=== PATIENT | male | born 1975 | race Caucasian/White ===

== ENCOUNTER 2023-07-02 12:59 | Emergency (ER) | payer OTHER, SELFPAY ==
[2023-07-02 13:01] VITALS: BP 109/69
[2023-07-02] MEDS: NSS 1000 IV (13:35)
--- NOTE | 2023-07-02 13:36 | ED.GENMED ---
History of Present Illness
General
Chief Complaint: Abdominal Pain
Source: patient
Exam Limitations: none
Time Seen by Provider: 07/02/23 13:22
Nursing documentation reviewed up to this point in time: agreed with
Travel History
Have you had any contact with someone who has COVID-19?: No
Do you have any symptoms of coronavirus? Fever > 100 degrees, chills, cough, shortness of breath, sore throat, loss of taste or smell, muscle aches, or headache?: No
History of Present Illness
History of Present Illness:
48-year-old male with no significant past medical history, just returned from [facility] 8 days ago after being there for 2 months uneventful trip other than 1 episode of diarrhea for 1 day.
Patient presents stating since 2 AM he has pain across his lower abdomen, it is a gnawing pain that crescendos up intermittently. Anytime he tries to eat or drink anything he feels bloated and the abdominal discomfort worsens.
3 days ago he developed general body aches, headache, chills and fever, metallic taste to his mouth.
[place] better yesterday but his stomach started hurting.
No mild headache behind his eyes, mild pain across lower abdomen
He has been taking Tylenol and Aleve, with no relief.
Past History
Past History
ED Past Medical History: None
ED Past Surgical History: None
Social History
Tobacco: Non-smoker
Personal: Single
Living: with family
Employment: Employed
Review of Systems
Review of Systems
Allergies reviewed?: Yes
All Other Systems: ROS reviewed and negative except as documented in HPI and ROS
Constitutional: Denies fever or fatigue
ABD/GI: Reports abdominal pain, nausea and anorexia; Denies vomiting, diarrhea, bloody stools or black stools
: Denies dysuria, flank pain, difficulty voiding or urgency
Musculoskeletal: Reports no symptoms
Skin: Reports no symptoms
Neurological: Reports no symptoms
Phy Exam
Physical Exam
Physical Exam:
GENERAL: No acute distress. A&Ox3.
CONSTITUTIONAL: Afebrile.
EYES: Clear, conjunctivae normal
ENMT: moist mucus membranes, Pharynx nl
RESPIRATORY: Regular respirations, nonlabored, lungs clear.
CARDIOVASCULAR: Regular rate and rhythm, no murmurs, no rubs.
GI: Soft, mild to moderate tenderness across lower abdomen, nondistended, normal BS
MUSCULOSKELETAL: Moves with ease. Well perfused.
SKIN: Warm, dry, pink
PSYCH: Normal mood and affect. Well kept, interactive and appropriate
NEUROLOGIC: Awake, alert and oriented. No focal neurological deficits
Course
Orders/Labs/Results
Orders:
Orders
07/02/23 13:24
0.9% Sodium Chloride 1000 ml [Nss] 1,000 ml IV BOLUS
07/02/23 13:34
CT Abd/pel W Iv And Oral Contr Urgent
Comment:
Reason For Exam: pain across lower abdomen
Iohexol [Omnipaque] See Protocol PO NOW STA
07/02/23 13:35
Complete Blood Count/With Diff Urgent
Comprehensive Metabolic Panel Urgent
Lipase Urgent
07/02/23 13:43
COVID-19 Antigen Urgent
Source: Nasal Swab
07/02/23 15:08
0.9% Sodium Chloride 1000 ml [Nss] 1,000 ml IV BOLUS
07/02/23 16:02
Ketorolac [Toradol] 15 mg IV NOW STA
07/02/23 17:02
Ondansetron Injectable [Zofran] 4 mg IV NOW STA
Abnormal Lab Results
07/02/23
13:35
WBC 1.6 L* 10^3/uL
(4.8-10.8)
RBC 4.54 L 10^6/uL
(4.70-6.10)
MCV 94.3 H fL
(80.0-94.0)
MCH 31.7 H pg
(27.0-31.0)
Plt Count 108 L 10^3/uL
(130-400)
Absolute Neuts (auto) 0.8 L* 10^3/uL
(1.4-6.5)
Absolute Lymphs (auto) 0.6 L 10^3/uL
(1.2-3.4)
Monocytes % 9.4 H %
(1.7-9.3)
AST 64 H U/L
(17-59)
07/02/23 13:35
07/02/23 13:35
Vital Signs
Initial and Last Documented VS:
Initial Vital Signs
Temp Pulse Resp BP Pulse Ox
97.8 F 83 16 109/69 100
07/02/23 13:01 07/02/23 13:01 07/02/23 13:01 07/02/23 13:01 07/02/23 13:01
Last Documented Vital Signs
Temp Pulse Resp BP Pulse Ox
97.8 F 65 18 110/67 100
07/02/23 13:01 07/02/23 18:22 07/02/23 18:22 07/02/23 18:22 07/02/23 18:22
Grounds Maintenance Worker consulted with Physician
Grounds Maintenance Worker consulted with physician?: Yes
Name of Physician Consulted: Vargas
MDM/Problems Addressed
Differential Diagnosis Includes:
Gastroenteritis, colitis, diverticulitis, viral illness, Covid
MDM/Problems Addressed:
48-year-old male with no significant past medical history, just returned from [facility] 8 days ago after being there for 2 months uneventful trip other than 1 episode of diarrhea for 1 day.
Patient presents stating since 2 AM he has pain across his lower abdomen, it is a gnawing pain that crescendos up intermittently. Anytime he tries to eat or drink anything he feels bloated and the abdominal discomfort worsens.
3 days ago he developed general body aches, headache, chills and fever, metallic taste to his mouth.
[place] better yesterday but his stomach started hurting.
No mild headache behind his eyes, mild pain across lower abdomen
He has been taking Tylenol and Aleve, with no relief.
Pt is totally nontoxic appearing
2:53 PM
CBC: WBC 1.6 Neutrophils 0.8 Platelets 108 No other clinically significant abnormality
Neutropenia, mild thrombocytopenia discussed with Hematology Dr. Thompson
CMP: Normal
Covid neg
Lipase normal
3:35 PM spoke with on site construction superintendent Dr. Thompson who agrees this may be a viral related neutropenia reactive due to viral infection, of course there is an element that may be an atypical infection due to his visiting exotic places, since he is
hemodynamically stable, not ill-appearing and the rest of his blood work and his abdominal CT shows nothing worrisome, he can be discharged to have his blood work rechecked in a week, to return to ER for fever, vomiting, feeling sicker in any way.
6:[address] abdomen pelvis with p.o. and IV contrast radiology report read: IMPRESSION:
There is a small amount of free fluid/ascites in the pelvis
There are bilateral renal cysts measuring up to 2.5 cm
Pt states Zofran helped his nausea 'a lot.' Rx for Zofran sent to his pharmacy
Out pt lab slip for repeat CBC, BMP in one week and I will check the results (pt lives in [place] and not returning for 3 weeks).
Discussed all results with him, all questions answered. He is comfortable going home (staying with his mom who is with him now).
Pt ambulated out with normal gait upon discharge
*Critical Care Note
Total Time (30-74mins, 75-104mins- exclusive of procedures): Not Applicable
ED Attending Note
-
Portions of this chart may have been created with voice recognition software.� Occasional wrong word or��sound alike� substitutions may have occurred due to the inherent limitations of voice recognition software.
Discharge Plan
Departure
Patient Disposition: Home (Routine Discharge)
Date of Disposition: 07/02/23
Time of Disposition: 18:07
Patient with high blood pressure during this ER visit?: No
Condition: Fair
Discharge Problem:
Abdominal pain, Leukopenia
Instructions: Abdominal Pain
Prescriptions:
New
ondansetron 4 mg tablet,disintegrating
4 mg PO Q8H PRN (Reason: nausea and vomiting) 5 Days Qty: 15 0RF
No Action
ascorbic acid (vitamin C) [Vitamin C] 1,000 mg Tablet
1,000 mg PO DAILY PRN (Reason: supplement)
acetaminophen 500 mg Tablet
500 mg PO Q6H PRN (Reason: mild pain)
acetaminophen 500 mg Tablet
1,000 mg PO DAILYPRN PRN (Reason: severe pain)
naproxen sodium [Aleve] 220 mg Tablet
220 mg PO Q8H PRN (Reason: mild pain)
calcium carbonate [Tums 500] 500 mg calcium (1,250 mg) Tablet,Chewable
500 mg PO DAILY PRN (Reason: indigestion)
cholecalciferol (vitamin D3)
1 tab PO DAILYPRN PRN (Reason: supplement)
zinc
1 tab PO DAILYPRN PRN (Reason: supplement)
Referrals:
NONE,* [Family Provider] -
Activity Restrictions/Additional Instructions:
As we discussed, I sent a prescription to your pharmacy for Zofran to use as needed for nausea.
Return here immediately for fever above 100.5 not relieved with Tylenol or Ibuprofen, vomiting more than once, worsening abdominal pain, bloody diarrhea or feeling sicker in any way.
Have your blood work rechecked on 07/08 between 8-10 a.m. and call me between 11 a.m. and 2 p.m. for results. and ask for Roseann Day.
Drink plenty of fluids.
Interventions
Interventions:
*Risk Screen - Suicide Last Done: 07/02/23 13:01
*General Assessment Last Done: 07/02/23 13:01
*Neglect/Abuse Screening Last Done: 07/02/23 13:01
ED- Fall Risk Assessment Last Done: 07/02/23 13:29
*ED COVID-19 Vaccine History Last Done: 07/02/23 18:23
*Nursing Disposition Last Done: 07/02/23 18:23
JK-Xsexwj-Luhqtlcjwk Assessment Last Done: 07/02/23 13:29
Discharge Date and Time
Discharge Date/Time: 07/02/23 18:23
Print Language: SALVADOREAN
[2023-07-02] MEDS: OMNIPAQUE 50 ML PO (13:41)
[2023-07-02 13:49] LABS: % Basophils 0.6 % (0-2); % Lymphocytes 37.5 % (20.5-51.1); % Monocytes 9.4 % (1.7-9.3); % Neutrophils 52.5 % (42.2-75.2); Absolute Lymphocytes 0.6 10^3/uL (1.2-3.4); Absolute Monocytes 0.2 10^3/uL (0.1-0.6); Hematocrit 42.8 % (39.0-52.0); Hemoglobin 14.4 g/dL (13.0-18.0); Mean Corp Hgb Conc. 33.6 g/dL (33.0-37.0); Mean Corpuscular Hgb 31.7 pg (27.0-31.0); Mean Corpuscular Volume 94.3 fL (80.0-94.0); Nucleated Red Blood Cells % 0 % (-); Platelet Count 108 10^3/uL (130-400); Red Blood Cell Count 4.54 10^6/uL (4.70-6.10)
[2023-07-02 13:54] LABS: White Blood Cell Count 1.6 10^3/uL (4.8-10.8)
[2023-07-02 13:58] LABS: ALT (SGPT) 36 U/L (0-50); AST (SGOT) 64 U/L (17-59); Alkaline Phosphatase 51 U/L (38-126); Blood Urea Nitrogen 11 mg/dl (9-20); Calcium 8.8 mg/dl (8.4-10.2); Carbon Dioxide 27 mmol/L (22-30); Chloride 104 mmol/L (98-107); Glucose 96 mg/dl (70-99); Lipase 268 U/L (23-300); Potassium 4.5 mmol/L (3.5-5.1); Sodium 135 mmol/L (135-145); Total Bilirubin 0.4 mg/dl (0.2-1.3); Total Protein 6.4 g/dl (6.3-8.2); eGFR > 60.00
[2023-07-02 14:05] LABS: COVID-19 Antigen Negative (Negative)
[2023-07-02 14:27] LABS: Absolute Neutrophils 0.8 10^3/uL (1.4-6.5)
[2023-07-02] MEDS: TORADOL 15 MG IV (16:27)
[2023-07-02 17:08] VITALS: BP 115/77
[2023-07-02] MEDS: ZOFRAN 4 MG IV (17:14)
[2023-07-02 18:22] VITALS: BP 110/67
== END 2023-07-02 18:23 | disposition home or self-care (01) ==
LOC: EMR 12:59
PROVIDERS: Registered Nurse; EMERGENCY PHYSICIAN Student in an Organized Health Care Education/Training Program
DX: R10.9 Unspecified abdominal pain (principal); R19.7 Diarrhea, unspecified; D72.819 Decreased white blood cell count, unspecified
CPT/HCPCS: 99284; 96374; 96375; 96361; 74177; 80053; 83690; 85025; 87811; Q9967

== ENCOUNTER 2023-07-03 23:11 | Inpatient (IN) | payer OTHER, SELFPAY ==
[2023-07-03 21:04] VITALS: BP 107/81
[2023-07-03 21:17] LABS: % Basophils 0.5 % (0-2); % Eosinophils 0.5 % (0-6); % Lymphocytes 41.2 % (20.5-51.1); % Monocytes 5.5 % (1.7-9.3); % Neutrophils 52.3 % (42.2-75.2); Absolute Lymphocytes 0.8 10^3/uL (1.2-3.4); Absolute Monocytes 0.1 10^3/uL (0.1-0.6); Hematocrit 42.4 % (39.0-52.0); Mean Corp Hgb Conc. 35.4 g/dL (33.0-37.0); Mean Corpuscular Hgb 32.1 pg (27.0-31.0); Mean Corpuscular Volume 90.6 fL (80.0-94.0); Mean Platelet Volume 9.4 fL (7.4-10.4); Nucleated Red Blood Cells % 0 % (-); Platelet Count 97 10^3/uL (130-400); Red Blood Cell Count 4.68 10^6/uL (4.70-6.10); Red Cell Dist. Width 12.9 % (11.5-14.5)
[2023-07-03 21:26] LABS: White Blood Cell Count 1.8 10^3/uL (4.8-10.8)
[2023-07-03 21:45] LABS: ALT (SGPT) 67 U/L (0-50); AST (SGOT) 113 U/L (17-59); Albumin 4.1 g/dl (3.5-5.0); Alkaline Phosphatase 51 U/L (38-126); Blood Urea Nitrogen 12 mg/dl (9-20); Calcium 8.9 mg/dl (8.4-10.2); Carbon Dioxide 28 mmol/L (22-30); Chloride 102 mmol/L (98-107); Glucose 97 mg/dl (70-99); Lipase 465 U/L (23-300); Potassium 4.3 mmol/L (3.5-5.1); Sodium 134 mmol/L (135-145); Total Bilirubin 0.5 mg/dl (0.2-1.3); Total Protein 6.7 g/dl (6.3-8.2); eGFR > 60.00
--- NOTE | 2023-07-03 22:14 | ED.GENMED ---
History of Present Illness
<Marlene Otero PA-C - Last Filed: 07/04/23 00:38>
General
Chief Complaint: Abdominal Pain
Source: patient
Exam Limitations: none
Time Seen by Provider: 07/03/23 21:55
Nursing documentation reviewed up to this point in time: agreed with
Travel History
Have you had any contact with someone who has COVID-19?: No
Do you have any symptoms of coronavirus? Fever > 100 degrees, chills, cough, shortness of breath, sore throat, loss of taste or smell, muscle aches, or headache?: Yes
Symptoms:: cough
History of Present Illness
History of Present Illness:
Patient is a 48-year-old male with no significant past medical history presenting for evaluation of worsening abdominal pain. He reports diffuse abdominal pain with associated with low-grade fever, body aches, fatigue, headache, retro-orbital pain.
He was seen in the emergency department yesterday where they did basic labs and got a CAT scan of the abdomen. Labs were significant for leukopenia and thrombocytopenia. Discussed with hematology at that time it was recommended discharge with
close return precautions.
Of note�patient was traveling in [facility] and returned home about 10 days ago. About 5 days following his return he developed fever, body aches, headache, chills, diarrhea. This then progressed to developing pain behind his eyes and intermittent
abdominal pain. [facility] where there is known dengue fever. He does report that he had multiple mosquito bites throughout his time there. He is concerned that he has dengue fever.
Phy Exam
<Marlene Otero PA-C - Last Filed: 07/04/23 00:38>
Physical Exam
Physical Exam:
General: In mild discomfort, nontoxic appearing
HEENT: Atraumatic, normocephalic; pupils equal round and reactive to light bilaterally, extraocular muscles intact, sclera nonicteric bilaterally, protecting airway
Neck: appears supple no meningeal signs, no cervical spine tenderness
CV: Regular rate and rhythm, heart sounds normal, no evidence of cyanosis
Resp: No evidence of respiratory distress, lungs clear bilaterally
Abd: Soft, diffusely tender throughout abdomen without rebound or guarding, non-distended
Extremities: No deformities, no evidence of cyanosis or edema; DP pulses palpable and equal bilaterally
Neuro: alert and oriented x 3; grossly intact
Psych: Normal affect, calm
Skin: Intact, no rashes or jaundice
Course
<Marlene Otero PA-C - Last Filed: 07/04/23 00:38>
Orders/Labs/Results
Orders:
Orders
07/03/23 21:08
IV Insert/Care/Rem.- Treatment PRN
07/03/23 21:12
Complete Blood Count/With Diff Urgent
Comprehensive Metabolic Panel Urgent
Lipase Urgent
Monotest Urgent
Comment: ADD ON
07/03/23 22:39
0.9% Sodium Chloride 1000 ml [Nss] 1,000 ml IV BOLUS
07/03/23 22:55
Miscellaneous Order As Directed
Miscellaneous order: Dengue- [id number]
Zika- [id number]
Typhoid- [id number]
EBV -
07/03/23 23:02
Add On- LAB Urgent
Tests Added?: monospot
07/03/23 23:36
CMV IgG Antibody [S] Urgent
CMV IgM Antibody [S] Urgent
Hepatitis A IgM Antibody Urgent
Hepatitis B Core Ab, IgM Urgent
Hepatitis B Surface Antibody Urgent
Hepatitis B Surface Antigen Urgent
Hepatitis C Antibody Urgent
Blood Parasites Urgent
DAISY Source: Blood/Venous
Specimen Description:
07/03/23 23:37
Blood Culture Q30M
DAISY Source: Blood/Venous
Specimen Description:
07/03/23 23:42
Blood Culture Q30M
DAISY Source: Blood/Venous
Specimen Description:
Abnormal Lab Results
07/03/23
21:12
WBC 1.8 L* 10^3/uL
(4.8-10.8)
RBC 4.68 L 10^6/uL
(4.70-6.10)
MCH 32.1 H pg
(27.0-31.0)
Plt Count 97 L 10^3/uL
(130-400)
Absolute Neuts (auto) 1.0 L 10^3/uL
(1.4-6.5)
Absolute Lymphs (auto) 0.8 L 10^3/uL
(1.2-3.4)
Sodium 134 L mmol/L
(135-145)
AST 113 H U/L
(17-59)
ALT 67 H U/L
(0-50)
Lipase 465 H U/L
(23-300)
07/03/23 21:12
07/03/23 21:12
Vital Signs
Initial and Last Documented VS:
Initial Vital Signs
Temp Pulse Resp BP Pulse Ox
99.9 F 95 17 107/81 98
07/03/23 21:04 07/03/23 21:04 07/03/23 21:04 07/03/23 21:04 07/03/23 21:04
Last Documented Vital Signs
Temp Pulse Resp BP Pulse Ox
98.3 F 70 17 103/66 99
07/03/23 23:40 07/03/23 23:40 07/03/23 23:40 07/03/23 23:40 07/03/23 23:40
Ashleelt;Geronimo Adame, DO - Last Filed: 07/03/23 22:25>
Orders/Labs/Results
Orders:
Orders
07/03/23 21:08
IV Insert/Care/Rem.- Treatment PRN
07/03/23 21:12
Complete Blood Count/With Diff Urgent
Comprehensive Metabolic Panel Urgent
Lipase Urgent
Monotest Urgent
Comment: ADD ON
07/03/23 22:39
0.9% Sodium Chloride 1000 ml [Nss] 1,000 ml IV BOLUS
07/03/23 22:55
Miscellaneous Order As Directed
Miscellaneous order: Dengue- [id number]
Zika- [id number]
Typhoid- [id number]
EBV -
07/03/23 23:02
Add On- LAB Urgent
Tests Added?: monospot
07/03/23 23:36
CMV IgG Antibody [S] Urgent
CMV IgM Antibody [S] Urgent
Hepatitis A IgM Antibody Urgent
Hepatitis B Core Ab, IgM Urgent
Hepatitis B Surface Antibody Urgent
Hepatitis B Surface Antigen Urgent
Hepatitis C Antibody Urgent
Blood Parasites Urgent
DAISY Source: Blood/Venous
Specimen Description:
07/03/23 23:37
Blood Culture Q30M
DAISY Source: Blood/Venous
Specimen Description:
07/03/23 23:42
Blood Culture Q30M
DAISY Source: Blood/Venous
Specimen Description:
Abnormal Lab Results
07/03/23
21:12
WBC 1.8 L* 10^3/uL
(4.8-10.8)
RBC 4.68 L 10^6/uL
(4.70-6.10)
MCH 32.1 H pg
(27.0-31.0)
Plt Count 97 L 10^3/uL
(130-400)
Absolute Neuts (auto) 1.0 L 10^3/uL
(1.4-6.5)
Absolute Lymphs (auto) 0.8 L 10^3/uL
(1.2-3.4)
Sodium 134 L mmol/L
(135-145)
AST 113 H U/L
(17-59)
ALT 67 H U/L
(0-50)
Lipase 465 H U/L
(23-300)
07/03/23 21:12
07/03/23 21:12
Vital Signs
Initial and Last Documented VS:
Initial Vital Signs
Temp Pulse Resp BP Pulse Ox
99.9 F 95 17 107/81 98
07/03/23 21:04 07/03/23 21:04 07/03/23 21:04 07/03/23 21:04 07/03/23 21:04
Last Documented Vital Signs
Temp Pulse Resp BP Pulse Ox
98.3 F 70 17 103/66 99
07/03/23 23:40 07/03/23 23:40 07/03/23 23:40 07/03/23 23:40 07/03/23 23:40
<Marlene Otero PA-C - Last Filed: 07/04/23 00:38>
MDM/Problems Addressed
Differential Diagnosis Includes:
Viral illness, parasitic infection(Zika, malaria, dengue, typhoid fever), hepatitis, mono, CMV,
MDM/Problems Addressed:
Patient is a 48-year-old male with no significant past medical history presenting to the emergency department with worsening abdominal pain and associated fever, myalgias, headache. Patient seen in ER yesterday and discharged after negative CT
scan. Patient recently returned from trip to [facility] where he spent a few days in [facility]. He does report multiple mosquito bites. He is concerned for specifically dengue fever. Return to the [place] about 10 days ago and symptoms
started approximately 5 days later. His vital signs are stable on arrival to emergency department. Physical exam as documented above. Labs today show severe leukopenia of 1.8 which is slightly increased from yesterday 1.6. Platelet count of 97
decreased from 103 yesterday. CMP significant for elevations in AST, ALT and lipase�all new from yesterday. Given recent travel, laboratory findings, and worsening abdominal pain�will contact infectious disease for recommendation.
Spoke with infectious disease, Dr. Malave-she recommends admission for observation until at least malaria smear has resulted. Followed ID direction on further testing. Will get blood culture, mono, hepatitis panel, CMV, malaria, typhoid fever, Zika,
dengue fever. ID will consult tomorrow. Discussed with hospitalist regarding admission for observation. IV fluids started.
Chronic conditions affecting care:
N/A
Acute Exacerbation and/or Progression of Chronic Illness:
N/A
<Marlene Otero PA-C - Last Filed: 07/04/23 00:38>
*Pulse Oximetry
Patient hypoxic: no
*EKG
Interpreted by ED Provider?: NA
*Inventory Specialist Interpretation
Rate: Inventory Specialist- N/A
*Critical Care Note
Total Time (30-74mins, 75-104mins- exclusive of procedures): Not Applicable
Data Reviewed
Review of Other/Old Records Reveals: Labs, Records and Radiology Studies
Source: patient and previous hospital records
<Marlene Otero PA-C - Last Filed: 07/04/23 00:38>
Patient Management
Discussion with other providers: Hospitalist and Ad Operations Specialist (Infectious disease-Dr. Malave)
ED Attending Note
<Marlene Otero PA-C - Last Filed: 07/04/23 00:38>
-
Portions of this chart may have been created with voice recognition software.� Occasional wrong word or��sound alike� substitutions may have occurred due to the inherent limitations of voice recognition software.
<Geronimo Adame DO - Last Filed: 07/03/23 22:25>
ED Attending Note
Patient seen and examined by attending physician: Yes
I performed the substantive portion of visit, reviewed & personally made and approve the management plan that is documented in note by myself or ABDIRAHMAN.: Yes
I performed a history and physical exam of patient and discussed management with resident, I reviewed resident's note and agree with documented findings and plan of care.: Yes
ED Attending Note:
I evaluated the patient at bedside. The patient returned from [facility] about 10 days ago and started having some withdrawal at time. He does have leukopenia and now with some increasing abdominal pain and increasing transaminases. Will also
check for Chikungunya, Zika, and Dengue.
Discharge Plan
Departure
Patient Disposition: Admit
Date of Disposition: 07/03/23
Time of Disposition: 23:11
Presentation/result/management discussed w/ accepting MD/DO: Hospitalist
Discharge Problem:
Abdominal pain, Leukopenia
Interventions
Interventions:
*Risk Screen - Suicide Last Done: 07/03/23 21:04
*General Assessment Last Done: 07/03/23 21:04
*Neglect/Abuse Screening Last Done: 07/03/23 21:04
ED- Fall Risk Assessment Last Done: 07/03/23 22:03
*ED COVID-19 Vaccine History Last Done: 07/03/23 21:04
DV-Dsigje-Zfrqroysqu Assessment Last Done: 07/03/23 22:03
[2023-07-03] MEDS: NSS 1000 IV (23:35)
[2023-07-03 23:40] VITALS: BP 103/66
--- NOTE | 2023-07-03 23:40 | HPS.HSE ---
Family Physician
-
Family Physician: * NONE
Chief Complaint
-
worsening abdominal pain
History of Present Illness
48M No prior significant PMHx, who recently returned from [facility], was evaluated at ER yesterday for abdominal pain, NEG CT AP and DC'd.
He returned to ER with worsening abdominal pain.
He was hiking in [facility] for 2 months.
Retuned to [facility] on second week june noted had many Mosquito bites there
1 week ago he a returned to [place] and 3 days later fever , chills , profuse sweating and myalgia and arthragra.
Medical History
Past Medical History
Past Medical History: Reports None
Past Surgical History: Reports None
Social History
Tobacco: Non-smoker
Alcohol: None
Drug: None
Family History
Family History: Not pertinent
Allergies / Home Medications
Allergies reflects when Allergies were last updated in [facility].
Home Medications with original date entered in [facility]
Allergy/Medication List:
Allergies
Allergy/AdvReac Type Severity Reaction Status Date / Time
No Known Allergies Allergy Verified 07/03/23 21:04
Home Medications
acetaminophen 500 mg tablet 1,000 mg PO DAILYPRN PRN severe pain 07/02/23
acetaminophen 500 mg tablet 500 mg PO Q6H PRN mild pain 07/02/23
ascorbic acid (vitamin C) 1,000 mg tablet (Vitamin C) 1,000 mg PO DAILY PRN supplement 07/02/23
calcium carbonate 500 mg PO DAILY PRN indigestion 07/02/23
cholecalciferol (vitamin D3) 1 tab PO DAILYPRN PRN supplement 07/02/23
naproxen sodium 220 mg tablet (Aleve) 220 mg PO Q8H PRN mild pain 07/02/23
ondansetron 4 mg disintegrating tablet 4 mg PO Q8H PRN nausea and vomiting 5 days #15 tabs 07/02/23
zinc 1 tab PO DAILYPRN PRN supplement 07/02/23
Review of Systems
-
Constitutional: Reports No Symptoms
EENT: Reports No Symptoms
Respiratory: Reports No Symptoms
Cardiac: Reports No Symptoms
Abdomen/GI: Reports Abdominal Pain (worsening )
: Reports No Symptoms
Musculoskeletal: Reports No Symptoms
Skin: Reports No Symptoms
Neurological: Reports No Symptoms
Endocrine: Reports No Symptoms
Hematologic/Lymphatic: Reports No Symptoms
Psych: Reports No Symptoms
Physical Exam
Vital Signs
Vital Signs
Temp Pulse Resp BP Pulse Ox
99.9 F 95 17 107/81 98
07/03/23 21:04 07/03/23 21:04 07/03/23 21:04 07/03/23 21:04 07/03/23 21:04
Physical Exam
General: Pain (mild disconfort ) and Other (nontoxic appearing)
HEENT: NormoCephalic and Anicteric
Respiratory: Clear
Cardiac: S1/S2 and Regular Rhythm; No Murmur
Breast: Deferred by me
GI: Soft, Normal Bowel Sounds, Tender (diffusely tender throughout abdomen ) and Other (no rebound tendrness , no guarding )
Rectal: Deferred by Provider
Genito-urinary: Deferred by me
Musculoskeletal: No Edema
Skin: Warm and Dry
Neuro: AO x 3 and Nonfocal/grossly intact
Psych: Calm
Laboratory Results
-
07/03/23 21:12
07/03/23 21:12
Laboratory Results
Total Bilirubin 0.5 mg/dl (0.2-1.3) 07/03/23 21:12
AST 113 U/L (17-59) H 07/03/23 21:12
ALT 67 U/L (0-50) H 07/03/23 21:12
Alkaline Phosphatase 51 U/L (38-126) 07/03/23 21:12
Lipase 465 U/L (23-300) H 07/03/23 21:12
Data Reviewed
-
CT Scan: Report Reviewed by me
Lab Data: Labs Reviewed by me
Old Records: Reviewed
Impression/Plan
-
Reviewed VS: T 99.9 HR 95 BP 107/80
Data
WCC 1.8 - was 1.6 on 07/02/23
Hgb 15 nl MCV
Plt 97 - was 108 on 07/02/23
Na 134
AST 113
ALT 67
Lipase 465
07/02/23 CT Abd/pel W Iv And Oral Contr
There is a small amount of free fluid/ascites in the pelvis
There are bilateral renal cysts measuring up to 2.5 cm
Last hospitalist admission:Nil
ASSESSMENT & PLAN
Presumed acute Bi-cytopenia ( low WCC, low Plt) nl Hgb
- Await Blood smear for parasite ( malaria )
- Pending labs: CMV IgG & IgM, Hep A IgM, HBs Ag, Hep Bs Ab, Hep B core IgM, Hep C Ab, Forrest screen per ID
- BCx
- ID consulted
Worsening abdominal pain with abn transaminase
- Trend LFTs and Lipase
- Await Blood smear for malaria parasite
- Clear and ADAT
DVT Px: SCD
Code: Full
IP MS
[2023-07-03 23:41] VITALS: BMI 20.2
[2023-07-03 23:49] LABS: Monotest Negative (Negative)
[2023-07-04] VITALS (7 sets, daily range): BP systolic 88–112; BP diastolic 53–72; BMI 19.7; BMI 19.6
[2023-07-04] MEDS: NSS 1000 IV ×4 (01:56→18:03)
[2023-07-04 02:59] LABS: Hepatitis B Surface Antigen Negative (Negative)
[2023-07-04 03:02] LABS: Hepatitis A IgM Antibody Negative (Negative); Hepatitis B Core Ab, IgM Negative (Negative)
[2023-07-04 03:16] LABS: Hepatitis B Surface Antibody Positive; Hepatitis C Antibody Negative (Negative)
[2023-07-04 04:59] LABS: Hematocrit 41.6 % (39.0-52.0); Mean Corp Hgb Conc. 33.7 g/dL (33.0-37.0); Mean Corpuscular Hgb 31.4 pg (27.0-31.0); Mean Corpuscular Volume 93.3 fL (80.0-94.0); Mean Platelet Volume 9.7 fL (7.4-10.4); Platelet Count 83 10^3/uL (130-400); Red Blood Cell Count 4.46 10^6/uL (4.70-6.10); Red Cell Dist. Width 12.8 % (11.5-14.5)
[2023-07-04 05:06] LABS: White Blood Cell Count 1.9 10^3/uL (4.8-10.8)
[2023-07-04 05:24] LABS: ALT (SGPT) 58 U/L (0-50); AST (SGOT) 96 U/L (17-59); Albumin 3.5 g/dl (3.5-5.0); Alkaline Phosphatase 54 U/L (38-126); Blood Urea Nitrogen 10 mg/dl (9-20); Calcium 8.5 mg/dl (8.4-10.2); Carbon Dioxide 29 mmol/L (22-30); Chloride 102 mmol/L (98-107); Estimated Creatinine Clearance 93 ml/min; Glucose 92 mg/dl (70-99); Potassium 4.1 mmol/L (3.5-5.1); Sodium 137 mmol/L (135-145); Total Bilirubin 0.4 mg/dl (0.2-1.3); Total Protein 5.9 g/dl (6.3-8.2); eGFR > 60.00
[2023-07-04 05:42] LABS: Lipase 376 U/L (23-300)
--- NOTE | 2023-07-04 08:24 | W.PN.HOSP.TC ---
Addendum entered and electronically signed by Jeremy Aguirre MD 07/04/23 16:28:
Patient seen and examined with resident. Agree with assessment and plan as documented. Patient with recent travel to [facility] presents with severe bicyopenia. reports getting bitten by mosquitos. no diarrhea. Had recent viral illness with fevers as
well. currently complains of nose bleed which resolved and extreme fatigue retroorbital pain, myalgias, abd pain, and rash excluding palms and soles. full 12 point ROS reviewed and negative except as documented. Exam: GEN ill appearing heart RRR
lungs clear abd soft mild TTP RUQ Ext no edema skin blanching rash on trunk. Plan:
# Bicytopenia- highly suspicious for dengue, order serology c/s ID, c/s hemeonc, leukopenic precautions, type and screen, check coag panel, peripheral smear. started on ceftriaxone for possible s typhi by ID, transfer to higher level of care for
closer monitoring as patient presents with warning signs. Already has some vascular leak with ascites. High risk for deterioration. repeat labs BID, start IVF
# Acute Transaminitis- likely infectious r/o other causes- labs ordered, start IVF and repeat CBC q12
# Elevated Lipase- cont to trend
Time spent coordinating review of records labs rads d/w resident, ID and nursing- 65 minutes
Original Note:
Today's Communication/Plan
-
see a/p
Assessment / Plan
Assessment / Plan
Assessment: 48-year-old with travel history to [facility] for 2 months, no past medical history, presents with abdominal pain, nausea, fever, fatigue maculopapular rash on torso, episode of nosebleeding Friday night.
#Acute leukopenia
#Acute thrombocytopenia
#Acute transaminitis
Plan
Based on symptoms, differentials include dengue fever vs typhoid fever
Monitor on telemetry IMU
Hep A IgM negative,
Blood cultures pending
ID input appreciated, start empiric ceftriaxone to cover typhoid
Check dengue PCR and serology
Abdominal CT scan unremarkable
Acetaminophen for pain
Blood parasite smear pending
Follow CBC and LFTs
IVF
Anticipated Discharge: 24 - 48 hours
Subjective/Interval History
-
Discussed with patient at bedside. Patient reports he is still experiencing generalized abdominal pain. Reports pain is a 2 out of 10. Reports he is fatigued, headache comes and goes, and he still has body aches. Denies diarrhea, Denies Bowel,
bladder dysfunction.
Objective Data
-
Labs:
Laboratory Results
07/03/23 07/04/23
21:12 04:46
WBC 1.8 L* 1.9 L*
Hgb 15.0 14.0
Hct 42.4 41.6
Plt Count 97 L 83 L
Sodium 134 L 137
Potassium 4.3 4.1
Chloride 102 102
Carbon Dioxide 28 29
BUN 12 10
Creatinine 1.1 0.9
Glucose 97 92
Calcium 8.9 8.5
Total Bilirubin 0.5 0.4
AST 113 H 96 H
ALT 67 H 58 H
Alkaline Phosphatase 51 54
Vital Signs:
Vital Signs
Temp Pulse Resp BP Pulse Ox
99.6 F 63 12 105/63 98
07/04/23 07:00 07/04/23 07:00 07/04/23 07:00 07/04/23 07:00 07/04/23 07:00
I&O
07/03/23 07/04/23 07/05/23
06:59 06:59 06:59
Intake Total 820 / 820
Balance 820 / 820
Review of Systems
-
All other systems: Reviewed and negative (Except as documented)
Constitutional: Reports Fatigue; Denies Fever or Weight Loss
EENT: Reports Eye Pain
Respiratory: Denies Cough, Trouble Breathing or Wheezing
Cardiac: Denies Chest Pain
Abdomen/GI: Reports Abdominal Pain and Nausea
Genitourinary: Reports No Symptoms
Musculoskeletal: Reports Muscle Pain
Skin: Reports No Symptoms
Neuro: Reports No Symptoms
Endocrine: Reports No Symptoms
Physical Exam
-
General: Other (Appears uncomfortable)
HEENT: Normocephalic
Respiratory: Clear to Auscultation; Negative Wheezes, Rales or Rhonchi
Cardiac: Regular Rhythm and S1/S2
GI: Soft and Tender (mildly tender on palpation); Negative Distended
Musculoskeletal: No Clubbing, No Cyanosis and No Edema
Skin: Other (pink macular nonblanchable rash on anterior and posterior torso)
Neuro: Awake, Alert, Oriented and AO x 3
Psych: Calm
Data Reviewed
-
Labs: Labs Reviewed by me and Discussed with Physician
[2023-07-04 08:35] LABS: Atypical Lymphocytes 4 %; Band Neutrophils 14 % (0-3); Lymphocytes 40 % (20-51); Monocytes 6 % (2-9); Normal RBC Morphology Yes; Platelets Checked Yes; Segmented Neutrophils 35 % (42-75); Total Cells Counted 100
[2023-07-04 08:36] LABS: Absolute Neutrophils -Man Diff 0.9 10^3/uL (1.4-6.5)
--- NOTE | 2023-07-04 09:05 | PTCARENOTE ---
Critical lab notification abs neutro (ANC) 0.9 WBC 1.9. Doctor Edinson notified 904. Patient placed on leukopenic precautions . transfer to IMU in process
[2023-07-04 09:34] LABS: INR 1.05; PT 13.5 Sec (11.4-14.6)
[2023-07-04 09:35] LABS: APTT 35.5 Sec (23.4-35.0)
--- NOTE | 2023-07-04 11:17 | CON.ID ---
Addendum entered and electronically signed by Jeremy Aguirre MD 07/04/23 16:25:
please disregard attending addendum, done in error.
Vu Aguirre MD
Addendum entered and electronically signed by Jeremy Aguirre MD 07/04/23 14:53:
Patient seen and examined with resident. Agree with assessment and plan as documented. Patient with recent travel to [place] presents with severe bicyopenia. reports getting bitten by mosquitos. no diarrhea. Had recent viral illness with fevers as
well. currently complains of nose bleed which resolved and extreme fatigue retroorbital pain, myalgias, abd pain, and rash excluding palms and soles. full 12 point ROS reviewed and negative except as documented. Exam: GEN ill appearing heart RRR
lungs clear abd soft mild TTP RUQ Ext no edema skin blanching rash on trunk. Plan:
# Bicytopenia- highly suspicious for dengue, order serology c/s ID, c/s hemeonc, leukopenic precautions, type and screen, check coag panel, peripheral smear. started on ceftriaxone for possible s typhi by ID, transfer to higher level of care for
closer monitoring for as patient presents with warning signs. pabloady has some vascular leak with ascites. High risk for deterioration. repeat labs BID minimum start IVF
# Acute Transaminitis- from infection r/o other causes labs orderd start IVF and repeat BID
# Eleavated Lipase- cont to trend
Time spent coordinating review of records labs rads d/w resident, ID and nursing- 65 minutes
Original Note:
Consultation
-
Date/Time Consultation Requested: July 03, [id number]
Date/Time Consultation Performed:
Requesting Provider: Dr. Clinton Tejeda
Performing Provider: Dr. Carmella Malave
Reason for Consultation: Return traveler with fever
Chief Complaint / Past History
Chief Complaint
Returned from [place]. Abdominal pain, body aches
History of Present Illness
48-year-old healthy male who recently spent [address] [facility]. When he landed, he had a cold/URI for few days which resolved. He spent most of his time in [place] hiking. Did go camping for 3 nights. He was not vigilant about insect
prevention. No known insect bites while in [place]. [place]. He had 1 day history of nausea vomiting and diarrhea in mid May. After [place], he traveled to the [facility] and visited [facility] for 4 days from June
June 16. [place] No physical contact with monkeys or any animals. He had diarrhea 2 to 3 to 3 days there. No abdominal pain. No fever. At the end of his trip he spent a [place]. On the last
day June 22, he had lunch outdoors and was bitten by multiple mosquitoes. He returned to the [facility] that evening June 22. On June 28, he started feeling unwell with subjective fever, chills, drenching sweats, headache, body aches, joint
pain, fatigue. COVID test was negative. He took Tylenol and felt a little better by June 30. However he developed lower abdominal pain. Had 1 episode of loose stools. Positive nausea. He presented to the ED on July 01. Patient
noted to be leukopenic and thrombocytopenic. CT of the abdomen pelvis showed mild pelvic ascites. He was discharged to home. He then started reading about his symptoms and was concerned about dengue fever and he returned to the ED last night. He
continues to have significant abdominal pain and nausea. Myalgias was severe yesterday. Nausea improved with Zofran. He feels slightly better today. He complains of headache behind his eyes. He did not notice rash. Had episode of nosebleeding
Friday night. No cough or shortness of breath. No urinary symptoms. Denies sexual activity for the past 2 years. He did not seek travel counseling prior to his trip to [facility]. He had traveled to [place] in the past including
[place], [place], [place]. He did receive yellow fever vaccine in the past and he believes also hepatitis A vaccine. History of mono in remote past.
Past History
Past Medical History: None
Allergy History:
No Known Allergies Allergy (Verified 07/03/23 21:04)
Medications Reviewed: Yes
Current Antibiotics:
none
Social History
Tobacco: Non-Smoker
Alcohol: None
Drug: None
Personal: Single
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
Family History
Family History: Not Pertinent
Review of Systems
Review of Systems
General: Change in Appetite
HEENT: Headache; Negative Stiff Neck, Sinus Problems or Pharyngitis
Cardiovascular: Negative Chest Pain, Dyspnea, Edema or Palpitations
Respiratory: Negative Dyspnea or Cough
Genital / Urological: Negative Dysuria or Flank Pain
Endocrine: Weakness
Musculoskeletal: Arthralgias and Myalgias
Neurological: Headache; Negative Dizziness
All systems: All other systems were reviewed and were negative
Vital Signs
Temp Pulse Resp BP Pulse Ox
99.6 F 63 12 105/63 98
07/04/23 07:00 07/04/23 07:00 07/04/23 07:00 07/04/23 07:00 07/04/23 07:00
Physical Exam
Physical Exam
Constitutional: No Acute Distress and Comfortable
Head: Other (no frontal or maxillary sinus tenderness)
Eyes: No Conjunctival Hemorrhage and Sclera Anicteric
Pharynx: Benign
Oral: No Thrush
Cardiovascular: Regular Rate and S1/S2
Pulmonary: Clear
Gastrointestinal: Soft, Non Tender, Non Distended, Normal Bowel Sounds and No Guarding
Genito-Urinary: Negative CVA Tenderness
Extremities: Negative Edema or Janeway Lesions
Musculoskeletal: Negative Joint Swelling or Joint Effusion
Skin: Rash (Faint pink macular nonblanchable rash on anterior and posterior torso)
Neurological: AO x 3; Negative Meningeal Signs
Lab / Diagnostic Study Results
07/04/23 04:46
07/04/23 04:46
Abs Immat Gran (auto) Not Reportable 07/04/23 04:46
Absolute Neuts (auto) Not Reportable 07/04/23 04:46
Absolute Lymphs (auto) Not Reportable 07/04/23 04:46
Absolute Monos (auto) Not Reportable 07/04/23 04:46
Absolute Basos (auto) Not Reportable 07/04/23 04:46
Total Counted 100 07/04/23 04:46
Immature Gran % Not Reportable 07/04/23 04:46
Neutrophils % Not Reportable 07/04/23 04:46
Lymphocytes % Not Reportable 07/04/23 04:46
Monocytes % Not Reportable 07/04/23 04:46
Eosinophils % Not Reportable 07/04/23 04:46
Basophils % Not Reportable 07/04/23 04:46
Abs Neuts (Manual) 0.9 10^3/uL (1.4-6.5) L* 07/04/23 04:46
Segmented Neutrophils 35 % (42-75) L 07/04/23 04:46
Band Neutrophils 14 % (0-3) H 07/04/23 04:46
Lymphocytes (Manual) 40 % (20-51) 07/04/23 04:46
PT 13.5 Sec (11.4-14.6) 07/04/23 09:07
INR 1.05 07/04/23 09:07
Microbiology Results
Micro:
07/04/23 09:07 Blood Parasites Smear - Pending
Blood/Venous
07/03/23 23:36 Blood Parasites Smear - Preliminary
Blood/Venous No blood parasites seen.
07/03/23 23:42 Blood Culture - Pending
Blood/Venous
07/03/23 23:37 Blood Culture - Pending
Blood/Venous
07/02/23 CT a/p: There is a small amount of free fluid/ascites in the pelvis. There are bilateral renal cysts measuring up to 2.5 cm
Assessment / Plan
# Return traveller [place] x 2 months, return date 06/24/23.
Mosquito bites (06/23/23)
# Acute leukopenia
# Acute thrombocytopenia
# Acute elevate LFT's
# Faint rash
# Fever (onset 06/28 at home), myalgias, arthralgias, BARRAZA (retro-orbital) , abdominal pain.
- Blood parasite smear negative.
-Hep A IgM neg.
-Immune to hep B with +HepBs Ab.
-blood cultures pending
- differential diagnosis:
Dengue fever vs typhoid fever.
Less likely chikungunya virus, zika.
Unlikely yellow fever (up to date with yellow fever vaccine).
- Start empiric ceftriaxone for typhoid.
- check dengue PCR and serology.
- Monitor closely for critical phase of dengue with vascular leak syndrome and shock.
Follow vitals, any signs of bleeding.
Follow CBC and LFT's
Continue fluid replacment.
Care Review
Plan reviewed with: Physician (Dr. Yanes)
[2023-07-04] MEDS: STERILE WATER FOR INJECTION 10 ML IV (12:09)
[2023-07-04] MEDS: ROCEPHIN 1000 MG IV (12:10)
[2023-07-04 12:14] LABS: Urine Albumin Negative (Neg - Trace); Urine Bilirubin Negative (Negative); Urine Character Clear (Clear); Urine Color Yellow; Urine Glucose Negative (Negative); Urine Ketone Negative (Negative); Urine Leukocyte Negative (Negative); Urine Nitrite Negative (Negative); Urine Occult Blood Negative (Negative); Urine Specific Gravity 1.005 (<1.030); Urine Urobilinogen Negative (Neg - 1+)
--- NOTE | 2023-07-04 13:13 | PTCARENOTE ---
report given to Cathie in IMU this time. Pt AAOx3 RA following a clear liquid diet NS running in R forearm @150ml/hr Rocephen started at 1200. Tests pending. Transport called to take pt to IMU.
[2023-07-04] MEDS: NSS IV (14:27)
--- NOTE | 2023-07-04 14:34 | PTCARENOTE ---
recieved pt from [address] [place] [address]. assessment as charted. pt has no complaints at this time. oriented to room. call smith in reach . sinus rythym on monitor.
--- NOTE | 2023-07-04 15:41 | CM ---
Patient was transferred off unit prior to initial assessment being completed.
[2023-07-04 20:23] LABS: % Eosinophils 2.3 % (0-6); % Immature Granulocytes 0.6 % (0-0.5); % Lymphocytes 54.7 % (20.5-51.1); % Monocytes 8.7 % (1.7-9.3); % Neutrophils 33.7 % (42.2-75.2); Absolute Lymphocytes 0.9 10^3/uL (1.2-3.4); Absolute Monocytes 0.2 10^3/uL (0.1-0.6); Hematocrit 39.4 % (39.0-52.0); Hemoglobin 13.8 g/dL (13.0-18.0); Mean Corpuscular Hgb 32.1 pg (27.0-31.0); Mean Corpuscular Volume 91.6 fL (80.0-94.0); Mean Platelet Volume 9.9 fL (7.4-10.4); Nucleated Red Blood Cells % 0 % (-); Platelet Count 75 10^3/uL (130-400)
[2023-07-04 20:48] LABS: Absolute Neutrophils 0.6 10^3/uL (1.4-6.5); White Blood Cell Count 1.7 10^3/uL (4.8-10.8)
[2023-07-05] VITALS (13 sets, daily range): BP systolic 92–111; BP diastolic 64–80; BMI 19.5
[2023-07-05] MEDS: NSS 1000 IV ×3 (01:23→15:55)
[2023-07-05] MEDS: NSS IV (04:05)
[2023-07-05 06:13] LABS: % Basophils 0.4 % (0-2); % Eosinophils 4.5 % (0-6); % Immature Granulocytes 0.4 % (0-0.5); % Lymphocytes 58.3 % (20.5-51.1); % Monocytes 7.6 % (1.7-9.3); % Neutrophils 28.8 % (42.2-75.2); Absolute Eosinophils 0.1 10^3/uL (0-0.7); Absolute Lymphocytes 1.3 10^3/uL (1.2-3.4); Absolute Monocytes 0.2 10^3/uL (0.1-0.6); Hematocrit 41.4 % (39.0-52.0); Hemoglobin 13.9 g/dL (13.0-18.0); Mean Corp Hgb Conc. 33.6 g/dL (33.0-37.0); Mean Corpuscular Hgb 31.4 pg (27.0-31.0); Mean Corpuscular Volume 93.5 fL (80.0-94.0); Mean Platelet Volume 10.5 fL (7.4-10.4); Nucleated Red Blood Cells % 0 % (-); Platelet Count 77 10^3/uL (130-400); Red Blood Cell Count 4.43 10^6/uL (4.70-6.10); Red Cell Dist. Width 12.8 % (11.5-14.5)
--- NOTE | 2023-07-05 06:28 | PTCARENOTE ---
Pt reports lower abd pain, like he feels like he needs to void. Voided 300mL. PVR 0mL. Pt states he has not had a BM since Friday. Pt reports he hasnt ambulated much since hospital admission. Denies N/V/D.
Tele showing sinus karla/sinus rhythm. Call smith within reach. Neutropenic precautions in place.
[2023-07-05 06:30] LABS: White Blood Cell Count 2.2 10^3/uL (4.8-10.8)
[2023-07-05 06:34] LABS: Blood Urea Nitrogen 9 mg/dl (9-20); Calcium 8.3 mg/dl (8.4-10.2); Carbon Dioxide 27 mmol/L (22-30); Chloride 107 mmol/L (98-107); Estimated Creatinine Clearance 103 ml/min; Glucose 89 mg/dl (70-99); Potassium 4.2 mmol/L (3.5-5.1); Sodium 139 mmol/L (135-145); eGFR > 60.00
--- NOTE | 2023-07-05 08:12 | W.PN.ID1 ---
Date of Service
Date of Service: July 05, 2023
Today's Communication
Continue antibiotics
Assessment / Plan
# Return traveller [place] x 2 months, return date 06/24/23.
Hx of Mosquito bites (06/23/23)
# Acute leukopenia
# Acute thrombocytopenia
# Acute elevate LFT's
# Faint rash
# Fever (onset 06/28 at home), myalgias, arthralgias, BARRAZA (retro-orbital) , abdominal pain.
- Blood parasite smear negative.
- Hep A IgM neg.
- Immune to hep B with +HepBs Ab.
- blood cultures pending
- differential diagnosis:
Dengue fever vs typhoid fever.
Less likely chikungunya virus, zika.
Unlikely yellow fever (up to date with yellow fever vaccine).
- Continue empiric ceftriaxone for typhoid.
- check dengue PCR and serology.
- Monitor closely for critical phase of dengue with vascular leak syndrome and shock.
Follow vitals, any signs of bleeding.
Follow CBC and LFT's
Continue fluid replacment.
Chief Complaint
-: Fever
Subjective / Review of Systems
Review of Systems: No Fever
Vital Signs / Physical Exam
Vital Signs
Vital Signs
Temp Pulse Resp BP Pulse Ox
97.8 F 54 11 101/68 99
07/05/23 03:00 07/05/23 06:15 07/05/23 06:15 07/05/23 06:00 07/05/23 06:15
Physical Exam
Constitutional: No Acute Distress, Comfortable and Non-toxic
Eyes: Sclera Anicteric
Cardiovascular: S1/S2; Negative S3/S4
Pulmonary: Non Labored; Negative Wheezes or Rales
Gastrointestinal: Soft and Non Tender
Neurological: Awake and Alert
Psychological: Calm
Objective Data
Lab Data
Lab Results
07/05/23 06:04
07/05/23 06:04
PT 13.5 Sec (11.4-14.6) 07/04/23 09:07
INR 1.05 07/04/23 09:07
APTT 35.5 Sec (23.4-35.0) H 07/04/23 09:07
Estimated Creat Clear 103 ml/min 07/05/23 06:04
Total Bilirubin 0.4 mg/dl (0.2-1.3) 07/04/23 04:46
AST 96 U/L (17-59) H 07/04/23 04:46
ALT 58 U/L (0-50) H 07/04/23 04:46
Alkaline Phosphatase 54 U/L (38-126) 07/04/23 04:46
Most recent labs reviewed.
Micro Results:
07/03/23 23:42 Blood Culture - Preliminary
Blood/Venous No Growth in 24 hours- Final report to follow
07/03/23 23:37 Blood Culture - Preliminary
Blood/Venous No Growth in 24 hours- Final report to follow
07/04/23 09:07 Blood Parasites Smear - Final
Blood/Venous No blood parasites seen.
07/03/23 23:36 Blood Parasites Smear - Final
Blood/Venous No blood parasites seen.
07/02/23 CT a/p: There is a small amount of free fluid/ascites in the pelvis. There are bilateral renal cysts measuring up to 2.5 cm
[2023-07-05 09:15] LABS: ALT (SGPT) 58 U/L (0-50); AST (SGOT) 79 U/L (17-59); Albumin 3.4 g/dl (3.5-5.0); Alkaline Phosphatase 53 U/L (38-126); Total Bilirubin 0.4 mg/dl (0.2-1.3); Total Protein 5.7 g/dl (6.3-8.2)
--- NOTE | 2023-07-05 10:13 | W.PN.HOSP.TC ---
Today's Communication/Plan
-
IVF
Await Serology
Monitor labs
Assessment / Plan
Assessment / Plan
Assessment: 48-year-old with travel history to [facility] for 2 months, presents with abdominal pain, nausea, fever, fatigue maculopapular rash on torso, episode of nose bleed Friday night. Patient did not have any recent diarrhea. Could have
had some diarrhea while in [facility] which resolved. He has bodyaches. No joint pain. Has some back pain. He spent time outdoors and has noticed muscular bites. No history of exposure to bats or animal bites. Patient does not remember the
dates of his vaccination or what types. He is going to find out. 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
On examination awake alert
Nontoxic-appearing
Cardiovascular system S1-S2 appreciated
Chest clear to auscultation
Skin no rashes
No joint tenderness or pain
Abdomen soft and nontender no hepatomegaly or splenomegaly noted
No icterus
SUPERVISOR OF WAY mostly nonfocal
No pedal edema
# Thrombocytopenia/leukopenia transaminitis
Reported fever at home
Recent travel to [facility] for 2 months
Returned on 06/24/2023
Patient thinks he was vaccinated for yellow fever
No joint pains which would be classic of chikungunya
He reports a rash however I cannot see any rash today on his body.
It is possible that it could be dengue-PCR pending
Zika is also prevalent in that area
Symptoms Not C/w leptospirosis
Malaria smear-negative
On ceftriaxone to cover typhoid
Follow CBC with differential and LFTs
Continue IV fluids
EKG ordered
Obtain patient's vaccination history he thinks he was vaccinated for yellow fever, hepatitis he is not sure about typhoid
# DVT prophylaxis-SCDs
# Full code
D/W RN
Anticipated Discharge: 24 - 48 hours
Subjective/Interval History
-
Date of Service: July 05, 2023
Objective Data
-
Labs:
Laboratory Results
07/05/23
06:04
WBC 2.2 L*
Hgb 13.9
Hct 41.4
Plt Count 77 L
Sodium 139
Potassium 4.2
Chloride 107
Carbon Dioxide 27
BUN 9
Creatinine 0.8
Glucose 89
Calcium 8.3 L
Total Bilirubin 0.4
AST 79 H
ALT 58 H
Alkaline Phosphatase 53
Vital Signs:
Vital Signs
Temp Pulse Resp BP Pulse Ox
98.2 F 63 13 103/65 100
07/05/23 07:35 07/05/23 08:00 07/05/23 08:00 07/05/23 08:00 07/05/23 08:00
I&O
07/04/23 07/05/23 07/06/23
06:59 06:59 06:59
Intake Total 820 / 820 3530 / 3530
Output Total 2575 / 2575
Balance 820 / 820 955 / 955
--- NOTE | 2023-07-05 10:31 | CON.ONC ---
Impression
Impression
acute febrile illness after mosquito bites in [facility], concerning for Dengue fever
leukopenia, thrombocytopenia
normal coags at admission
Plan
Plan
Clinically improving
No signs of bleeding, as can be seen in about 1/3 of Dengue cases (etiology is poorly understood, may be due to increased capillary fragility)
Will update coags, and check fibrinogen. Would consider cryoptt if low fibrinogen, though unlikely
Supportive care per primary team, ID
Patient History
History of Present Illness
Asked to see patient about bleeding risk with suspected Dengue fever versus typhoid.
This is a 48 yo M who was recently traveling in [place], where he was bitten by multiple mosquitoes. Approximately 5-6 days later, now home in [place], he developed fevers, chills, sweats, headache, retro-orbital pain, nausea, myalgias, arhtralgias
and fatigue. He was seen in the ER on 07/02/23, and found to have low WBC and platelet count. CT was noted only for mild pelvic ascites. He was sent home, but returned over concern that he could have Dengue, with significant abd pain, and was
admitted. Full infection work-up is pending. He's on empiric ceftrixone.
Labs today noted for slight improvement in WBC, up to 2.2 from 1.7 yesterday. Platelet stable at 77. Hgb 13.9. He denies bleeding from nose, mouth, gums. No GI/ bleeding. No rashes or skin lesions. He had scant blood on a tissue when he blew his
nose on 06/30.
Appetite improving, though abd pain increased currently as he ate muller and eggs for breakfast. Still with retro-orbital pain, but less.
Past-Medical/Surgical History
PMH/PSH - none
FH - NC
SH - non smoker
Patient Medication
�Medication �Instructions �Recorded �Confirmed �Last Taken �Type
acetaminophen 500 mg tablet 1,000 mg PO DAILYPRN PRN severe 07/02/23 07/02/23 Unknown History
pain
acetaminophen 500 mg tablet 500 mg PO Q6H PRN mild pain 07/02/23 07/02/23 07/01/23 History
ascorbic acid (vitamin C) 1,000 mg 1,000 mg PO DAILY PRN supplement 07/02/23 07/02/23 07/01/23 History
tablet (Vitamin C)
calcium carbonate 500 mg PO DAILY PRN indigestion 07/02/23 07/02/23 07/01/23 History
cholecalciferol (vitamin D3) 1 tab PO DAILYPRN PRN supplement 07/02/23 07/02/23 07/01/23 History
naproxen sodium 220 mg tablet 220 mg PO Q8H PRN mild pain 07/02/23 07/02/23 07/01/23 History
(Aleve)
ondansetron 4 mg disintegrating 4 mg PO Q8H PRN nausea and 07/02/23 Unknown Rx
tablet vomiting 5 days #15 tabs
zinc 1 tab PO DAILYPRN PRN supplement 07/02/23 07/02/23 07/01/23 History
Active Medications
Generic Name Dose Route Start Last Admin
Trade Name Freq PRN Reason Stop Dose Admin
Acetaminophen 650 mg 07/04/23 01:30
Acetaminophen 325 Mg Tablet PO 08/01/23 01:29
Q4HPRN PRN
mild pain/BARRAZA/temp> 100.4F
Ceftriaxone Sodium 1,000 mg 07/04/23 12:00 07/04/23 12:10
Ceftriaxone 1000 Mg / 10 Ml Vial IV 1,000 mg
Q24H SHAKIRA Administration
Sodium Chloride 1,000 mls @ 100 mls/hr 07/04/23 09:00 07/05/23 08:06
Nss IV 1,000 mls
.Q10H SHAKIRA Administration
Sodium Chloride 0 flush 07/04/23 02:00
Sodium Chloride 0.9% (Flush) Syringe IV 08/01/23 01:59
PER PROTOCOL SHAKIRA
Sterile Water 10 ml 07/04/23 12:00 07/04/23 12:09
Sterile Water For Injection 10 Ml Vial IV 08/01/23 11:59 10 ml
Q24H SHAKIRA Administration
Review of Systems
-
All Other Systems: Not reviewed unless documented
Physical Exam
-
General: Well Developed, Well Nourished and No Apparent Distress
HEENT: Moist Mucous Membranes and Other (no oral lesions/bleeding); Negative Jaundice
Cardiology: Normal Sinus Rhythm
Pulmonary: Clear
GI: Soft and Normal Bowel Sounds
Musculoskeletal: No Clubbing, No Cyanosis and No Edema
Extremities: No C/C/E
Neurology: Non Focal, No Lateralizing Symptoms and No Word Finding Difficulty
Skin: Warm, Dry, No Ecchymosis and Other (no petechiae); Negative Rash, Ulcers, Lesions or Jaundice
Hematologic / Lymphatic: No Lymphadenopathy
Psych: Calm and Intact Judgement/Insight
Labs
Lab Results
WBC 2.2 10^3/uL (4.8-10.8) L* 07/05/23 06:04
RBC 4.43 10^6/uL (4.70-6.10) L 07/05/23 06:04
Hgb 13.9 g/dL (13.0-18.0) 07/05/23 06:04
Hct 41.4 % (39.0-52.0) 07/05/23 06:04
MCV 93.5 fL (80.0-94.0) 07/05/23 06:04
MCH 31.4 pg (27.0-31.0) H 07/05/23 06:04
MCHC 33.6 g/dL (33.0-37.0) 07/05/23 06:04
RDW 12.8 % (11.5-14.5) 07/05/23 06:04
Plt Count 77 10^3/uL (130-400) L 07/05/23 06:04
MPV 10.5 fL (7.4-10.4) H 07/05/23 06:04
Abs Immat Gran (auto) 0.0 10^3/uL (0-0.05) 07/04/23 20:13
Absolute Neuts (auto) 0.6 10^3/uL (1.4-6.5) L* 07/04/23 20:13
Absolute Lymphs (auto) 0.9 10^3/uL (1.2-3.4) L 07/04/23 20:13
Absolute Monos (auto) 0.2 10^3/uL (0.1-0.6) 07/04/23 20:13
Absolute Eos (auto) 0.0 10^3/uL (0-0.7) 07/04/23 20:13
Absolute Basos (auto) 0.0 10^3/uL (0-0.2) 07/04/23 20:13
Immature Gran % 0.6 % (0-0.5) H 07/04/23 20:13
Neutrophils % 33.7 % (42.2-75.2) L 07/04/23 20:13
Lymphocytes % 54.7 % (20.5-51.1) H 07/04/23 20:13
Monocytes % 8.7 % (1.7-9.3) 07/04/23 20:13
Eosinophils % 2.3 % (0-6) 07/04/23 20:13
Basophils % 0.0 % (0-2) 07/04/23 20:13
Creatinine 0.8 mg/dL (0.7-1.3) 07/05/23 06:04
Vital Signs
Vital Signs
Temp Pulse Resp BP Pulse Ox
98.2 F 63 13 103/65 100
07/05/23 07:35 07/05/23 08:00 07/05/23 08:00 07/05/23 08:00 07/05/23 08:00
[2023-07-05] MEDS: ROCEPHIN 1000 MG IV (12:05)
[2023-07-05] MEDS: STERILE WATER FOR INJECTION 10 ML IV (12:05)
[2023-07-05 12:50] LABS: CMV IgG Antibody <0.20 U/mL (<=0.70)
[2023-07-05 13:11] LABS: CMV IgM Antibody <8.0 AU/mL (<=29.9)
[2023-07-05 13:14] LABS: Absolute Neutrophils 0.6 10^3/uL (1.4-6.5)
[2023-07-06] VITALS (13 sets, daily range): BP systolic 91–118; BP diastolic 56–77; BMI 19.3
[2023-07-06] MEDS: NSS 1000 IV (01:02)
[2023-07-06 04:54] LABS: INR 1.02; PT 13.3 Sec (11.4-14.6)
[2023-07-06 04:55] LABS: APTT 34.7 Sec (23.4-35.0); Fibrinogen 277 MG/DL (199-459)
[2023-07-06 05:28] LABS: ALT (SGPT) 51 U/L (0-50); AST (SGOT) 62 U/L (17-59); Albumin 3.1 g/dl (3.5-5.0); Alkaline Phosphatase 49 U/L (38-126); Total Bilirubin 0.4 mg/dl (0.2-1.3); Total Protein 5.5 g/dl (6.3-8.2)
--- NOTE | 2023-07-06 05:33 | PTCARENOTE ---
Pt slept well overnight, no issues to report. Pt only complaint is some minor discomfort/ abd bloating after eating. Denies any pain or nausea. HR in the 40's when sleeping SB on the monitor. IVF infusing Via right forearm int as ordered. Pt using
urinal independently when needed. Vital signs stable. Call smith in reach. Will continue to monitor.
--- NOTE | 2023-07-06 09:04 | W.PN.ID1 ---
Date of Service
Date of Service: July 06, 2023
Today's Communication
D/C ceftriaxone and observe.
Assessment / Plan
# Return traveller [place] x 2 months, return date 06/24/23.
Hx of Mosquito bites (06/23/23)
# Acute leukopenia
# Acute thrombocytopenia
# Acute elevate LFT's
# Faint rash
# Fever (onset 06/28 at home), myalgias, arthralgias, BARRAZA (retro-orbital) , abdominal pain.
- Blood parasite smear negative.
- Hep A IgM neg.
- Immune to hep B with +HepBs Ab.
- blood cultures pending
- differential diagnosis:
Dengue fever vs typhoid fever.
Less likely chikungunya virus, zika.
Unlikely yellow fever (up to date with yellow fever vaccine).
- Doubt typhoid at present. Will discontinue ceftriaxone for the present. Can restart if necessary.
- check dengue PCR and serology.
- Monitor closely for critical phase of dengue with vascular leak syndrome and shock.
Follow vitals, any signs of bleeding.
Follow CBC and LFT's
Continue fluid replacement.
Chief Complaint
-: Fever
Subjective / Review of Systems
Patient seen and examined. Reports decreased and general body aches. Mild stomach discomfort, but no fevers or chills. No diarrhea. Normal bowel movement today.
Vital Signs / Physical Exam
Vital Signs
Vital Signs
Temp Pulse Resp BP Pulse Ox
97.5 F 52 14 106/66 99
07/06/23 03:15 07/06/23 08:15 07/06/23 08:15 07/06/23 08:00 07/06/23 08:17
Physical Exam
Constitutional: No Acute Distress, Comfortable and Non-toxic
Eyes: Sclera Anicteric
Pulmonary: Non Labored; Negative Wheezes
Gastrointestinal: Non Distended
Neurological: Awake and Alert
Psychological: Calm
Objective Data
Lab Data
PT 13.3 Sec (11.4-14.6) 07/06/23 04:24
INR 1.02 07/06/23 04:24
APTT 34.7 Sec (23.4-35.0) 07/06/23 04:24
Estimated Creat Clear 103 ml/min 07/05/23 06:04
Total Bilirubin 0.4 mg/dl (0.2-1.3) 07/06/23 04:24
AST 62 U/L (17-59) H 07/06/23 04:24
ALT 51 U/L (0-50) H 07/06/23 04:24
Alkaline Phosphatase 49 U/L (38-126) 07/06/23 04:24
Most recent labs reviewed.
Micro Results:
07/03/23 23:42 Blood Culture - Preliminary
Blood/Venous No Growth in 48 hours- Final report to follow
07/03/23 23:37 Blood Culture - Preliminary
Blood/Venous No Growth in 48 hours- Final report to follow
07/04/23 09:07 Blood Parasites Smear - Final
Blood/Venous No blood parasites seen.
07/03/23 23:36 Blood Parasites Smear - Final
Blood/Venous No blood parasites seen.
07/02/23 CT a/p: There is a small amount of free fluid/ascites in the pelvis. There are bilateral renal cysts measuring up to 2.5 cm
[2023-07-06 09:17] LABS: Hematocrit 42.2 % (39.0-52.0); Hemoglobin 14.8 g/dL (13.0-18.0); Mean Corp Hgb Conc. 35.1 g/dL (33.0-37.0); Mean Corpuscular Hgb 31.8 pg (27.0-31.0); Mean Corpuscular Volume 90.8 fL (80.0-94.0); Mean Platelet Volume 9.8 fL (7.4-10.4); Nucleated Red Blood Cells % 0 % (-); Platelet Count 99 10^3/uL (130-400); Red Blood Cell Count 4.65 10^6/uL (4.70-6.10); Red Cell Dist. Width 12.7 % (11.5-14.5); White Blood Cell Count 2.8 10^3/uL (4.8-10.8)
[2023-07-06 09:24] LABS: Blood Urea Nitrogen 11 mg/dl (9-20); Calcium 8.4 mg/dl (8.4-10.2); Carbon Dioxide 26 mmol/L (22-30); Chloride 110 mmol/L (98-107); Estimated Creatinine Clearance 102 ml/min; Glucose 90 mg/dl (70-99); Magnesium 1.9 mg/dl (1.6-2.3); Sodium 138 mmol/L (135-145); eGFR > 60.00
[2023-07-06 09:41] LABS: Potassium 4.4 mmol/L (3.5-5.1)
--- NOTE | 2023-07-06 10:06 | W.PN.HOSP.TC ---
Today's Communication/Plan
-
IVF
Watch
Assessment / Plan
Assessment / Plan
Assessment: 48-year-old with travel history to [facility] for 2 months, presents with abdominal pain, nausea, fever, fatigue maculopapular rash on torso, episode of nose bleed Friday night. Patient did not have any recent diarrhea. Could have
had some diarrhea while in [place] which resolved. He has bodyaches. No joint pain. Has some back pain. He spent time outdoors and has noticed muscular bites. No history of exposure to bats or animal bites. Patient does not remember the
dates of his vaccination or what types. He is going to find out. 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
On examination awake alert
Nontoxic-appearing
Cardiovascular system S1-S2 appreciated
Chest clear to auscultation
Skin no rashes
No joint tenderness or pain
Abdomen soft and nontender no hepatomegaly or splenomegaly noted
No icterus
[employer] mostly nonfocal
No pedal edema
# Thrombocytopenia/leukopenia/ transaminitis
Reported fever at home
Recent travel to [facility] for 2 months
Returned on 06/24/2023
Patient thinks he was vaccinated for yellow fever
No joint pains which would be classic of chikungunya
He reports a rash however I cannot see any rash today on his body.
It is possible that it could be dengue-PCR pending
Zika is also prevalent in that area
Symptoms Not C/w leptospirosis
Malaria smear-negative
Ceftriaxone stopped by ID today.
Follow CBC with differential and LFTs
Labs improving
Stop IVF and watch today
EKG SR Incomplete RBBB
#Asymptomatic Bradycardia- Picks with to 70s when he ambulates
# DVT prophylaxis-SCDs
# Full code
D/W RN
Obtain patient's vaccination history he thinks he was vaccinated for yellow fever, hepatitis he is not sure about typhoid
Anticipated Discharge: 24 - 48 hours
Subjective/Interval History
-
Date of Service: July 06, 2023
Objective Data
-
Labs:
Laboratory Results
07/06/23 07/06/23
04:24 09:01
WBC 2.8 L
Hgb 14.8
Hct 42.2
Plt Count 99 L D
PT 13.3
INR 1.02
APTT 34.7
Sodium 138
Potassium 4.4
Chloride 110 H
Carbon Dioxide 26
BUN 11
Creatinine 0.8
Glucose 90
Calcium 8.4
Total Bilirubin 0.4
AST 62 H
ALT 51 H
Alkaline Phosphatase 49
Vital Signs:
Vital Signs
Temp Pulse Resp BP Pulse Ox
97.5 F 52 14 106/66 99
07/06/23 03:15 07/06/23 08:15 07/06/23 08:15 07/06/23 08:00 07/06/23 08:17
I&O
07/05/23 07/06/23 07/07/23
06:59 06:59 06:59
Intake Total 3530 / 3530 3480 / 3480
Output Total 2575 / 2575 3275 / 3275
Balance 955 / 955 205 / 205
[2023-07-06] MEDS: NSS IV (10:21)
--- NOTE | 2023-07-06 10:21 | CM ---
CM following re: discharge planning.
Reviewed pt's chart, met with pt.
Pt is a 48 year old male, admitted with primary dx of Abdominal pain.
Pt reports he lives with mother in a 2SH, 2 steps to enter. 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 pt reports he went to [facility] and pent 2 months there with friends, hiking in [place] and enjoying
[facility] [employer].
PCP: Pt stated he does not have PCP. A list of PCP offices provided.
Pharmacy: [facility]
D/C plan: home with anticipated no needs.
CM will follow with discharge plan updates as hospitalization progresses
[2023-07-06 11:28] LABS: Absolute Neutrophils -Man Diff 1.1 10^3/uL (1.4-6.5); Band Neutrophils 3 % (0-3); Segmented Neutrophils 37 % (42-75)
[2023-07-06 11:29] LABS: Atypical Lymphocytes 7 %; Eosinophils 4 % (0-6); Lymphocytes 41 % (20-51); Monocytes 8 % (2-9)
[2023-07-06 11:31] LABS: Normal RBC Morphology No; Platelets Checked YES
[2023-07-06 11:32] LABS: Ovalocytes FEW; Total Cells Counted 100
--- NOTE | 2023-07-06 14:22 | PTCARENOTE ---
Patient stating that his bloating is resolving. He had a formed bowel movement today and ate majority of his lunch. Shower order obtained as per patient request. Patient has been compliant with plan of care, on neutrapenic precautions. Labs
completed.
--- NOTE | 2023-07-06 15:13 | PTCARENOTE ---
Patient has been in Sinus bradycardia 40-50s this shift, asymptomatic. Discussed with medical team.
[2023-07-07] VITALS (8 sets, daily range): BP systolic 99–109; BP diastolic 61–81; BMI 18.8
[2023-07-07 05:56] LABS: % Basophils 0.6 % (0-2); % Eosinophils 4.4 % (0-6); % Lymphocytes 57.8 % (20.5-51.1); % Monocytes 7.4 % (1.7-9.3); % Neutrophils 29.8 % (42.2-75.2); Absolute Eosinophils 0.2 10^3/uL (0-0.7); Absolute Monocytes 0.3 10^3/uL (0.1-0.6); Hematocrit 40.4 % (39.0-52.0); Hemoglobin 13.9 g/dL (13.0-18.0); Mean Corp Hgb Conc. 34.4 g/dL (33.0-37.0); Mean Corpuscular Hgb 31.2 pg (27.0-31.0); Mean Corpuscular Volume 90.8 fL (80.0-94.0); Mean Platelet Volume 10.5 fL (7.4-10.4); Nucleated Red Blood Cells % 0 % (-); Platelet Count 130 10^3/uL (130-400); Red Blood Cell Count 4.45 10^6/uL (4.70-6.10); Red Cell Dist. Width 12.4 % (11.5-14.5); White Blood Cell Count 3.4 10^3/uL (4.8-10.8)
--- NOTE | 2023-07-07 09:28 | W.PN.ID1 ---
Date of Service
Date of Service: July 07, 2023
Today's Communication
Can dc home from ID standpoint.
Follow-up with me in one week with repeat CBC, CMP.
Assessment / Plan
# Return traveller [place] x 2 months, return date 06/24/23.
Hx of Mosquito bites (06/23/23)
# Acute leukopenia - IMPROVING
# Acute thrombocytopenia - RESOLVED
# Acute elevate LFT's -TRENDING DOWN
# Faint rash- RESOLVED
# Recent Fever (onset 06/28 at home), myalgias, arthralgias, BARRAZA (retro-orbital) , abdominal pain.
- Blood parasite smear negative.
- Hep A IgM neg.
- Immune to hep B with +HepBs Ab.
- blood cultures negative
- differential diagnosis:
Suspect Dengue fever -> sendout serology pending
Less likely typhoid fever as blood cx neg; ceftriaxone dc'd over the weekend.
Less likely chikungunya virus, zika.
Unlikely yellow fever (up to date with yellow fever vaccine).
-Pt overall improving.
Can dc home from ID standpoint.
Follow-up with me in one week with repeat CBC, CMP.
Chief Complaint
-: Other (return traveler)
Subjective / Review of Systems
Feeling better. Some abdominal gas. No diarrhea.
Vital Signs / Physical Exam
Vital Signs
Vital Signs
Temp Pulse Resp BP Pulse Ox
97.8 F 75 11 105/68 97
07/07/23 07:30 07/07/23 08:45 07/07/23 08:45 07/07/23 08:00 07/07/23 08:53
Physical Exam
Constitutional: No Acute Distress and Comfortable
Eyes: No Conjunctival Hemorrhage and Sclera Anicteric
Cardiovascular: Regular Rate and S1/S2
Pulmonary: Clear
Gastrointestinal: Soft, Non Tender and Non Distended
Extremities: Negative Edema
Skin: Negative Rash
Neurological: AO x 3
Objective Data
Lab Data
Lab Results
07/07/23 05:39
07/06/23 04:24
PT 13.3 Sec (11.4-14.6) 07/06/23 04:24
INR 1.02 07/06/23 04:24
APTT 34.7 Sec (23.4-35.0) 07/06/23 04:24
Estimated Creat Clear 102 ml/min 07/06/23 04:24
Total Bilirubin 0.4 mg/dl (0.2-1.3) 07/06/23 04:24
AST 62 U/L (17-59) H 07/06/23 04:24
ALT 51 U/L (0-50) H 07/06/23 04:24
Alkaline Phosphatase 49 U/L (38-126) 07/06/23 04:24
Most recent labs reviewed.
Micro Results:
07/03/23 23:42 Blood Culture - Preliminary
Blood/Venous No Growth in 72 hours- Final report to follow
07/03/23 23:37 Blood Culture - Preliminary
Blood/Venous No Growth in 72 hours- Final report to follow
07/04/23 09:07 Blood Parasites Smear - Final
Blood/Venous No blood parasites seen.
07/03/23 23:36 Blood Parasites Smear - Final
Blood/Venous No blood parasites seen.
07/02/23 CT a/p: There is a small amount of free fluid/ascites in the pelvis. There are bilateral renal cysts measuring up to 2.5 cm
--- NOTE | 2023-07-07 11:16 | W.PN.HOSP.TC ---
Addendum entered and electronically signed by Jeremy Aguirre MD 07/07/23 21:53:
Patient seen and examined with resident. Agree with assessment and plan as documented. Feels much stronger, no bleed. full 12 point ROS reviewed and negative except as documented. Exam: GEN NAD heart RRR lungs clear abd soft mild TTP RUQ Ext no
edema skin no rash. Plan:
# Bicytopenia- highly suspicious for dengue, test still pending, much improved DC home f/u ID as OP
# Acute Transaminitis- resolving, f/u as OP
Dispo no PCP set up with [facility]-information gievn
Time spent coordinating review of records labs rads dc planning, d/w resident, ID and nursing- 35 minutes
Original Note:
Today's Communication/Plan
-
His white blood cell, ANC has improved
Denies fever, denies fatigue
Is tolerating oral diet/fluids
Plan is to discharge today and follow-up outpatient infectious disease and PCP,
Recheck CBC, BMP outpatient in a week
Assessment / Plan
Assessment / Plan
Assessment:
# Thrombocytopenia/leukopenia
He was initially started on ceftriaxone to cover typhoid but D/C yesterday
WBC 3.4. Trending up since presentation
ANC now 1000.
dengue-PCR pending
Malaria smear-negative
Labs improving
IVF stopped yesterday, and he was watched today
# Transaminitis
LFTs improving since admission
Continue to monitor
# DVT prophylaxis-SCDs
# Full code
Anticipated Discharge: Today
Subjective/Interval History
-
Discussed with patient at bedside. Patient denies fatigue. Denies abdominal pain. Reports mild bloating. Tolerating oral and liquids
Objective Data
-
Labs:
Laboratory Results
07/07/23
05:39
WBC 3.4 L
Hgb 13.9
Hct 40.4
Plt Count 130 D
Vital Signs:
Vital Signs
Temp Pulse Resp BP Pulse Ox
97.8 F 75 11 105/68 97
07/07/23 07:30 07/07/23 08:45 07/07/23 08:45 07/07/23 08:00 07/07/23 08:53
I&O
07/06/23 07/07/23 07/08/23
06:59 06:59 06:59
Intake Total 3480 / 3480 540 / 540
Output Total 3275 / 3275 1625 / 1625 250 / 250
Balance 205 / 205 -1085 / -1085 -250 / -250
Review of Systems
-
All other systems: Reviewed and negative (except as documented)
Physical Exam
-
General: Well Developed and Well Nourished
HEENT: Normocephalic
Respiratory: Clear to Auscultation; Negative Wheezes, Rales or Rhonchi
Cardiac: Regular Rhythm and S1/S2
GI: Soft, Nontender, Nondistended and Normal Bowel Sounds
Musculoskeletal: No Clubbing, No Cyanosis and No Edema
Neuro: Awake, Alert, Oriented and AO x 3
Psych: Calm
Data Reviewed
-
Labs: Labs Reviewed by me and Discussed with Physician
--- NOTE | 2023-07-07 13:53 | W.PN.ONC2 ---
Today's Communication / Plan
-
ANC now 1000.
No objection to taking off neutropenic precautions and d/c home.
Impression
Impression
Acute febrile illness after mosquito bites in [place], concerning for Dengue fever
Thrombocytopenia without evidence of DIC, resolving, was likely infection-related
Leukopenia/neutropenia, improved, likely infection-related
Plan
Plan
Clinically improving
No signs of bleeding, as can be seen in about 1/3 of Dengue cases (etiology is poorly understood, may be due to increased capillary fragility)
Supportive care per primary team, ID
Subjective/Objective
Chief Complaint
Heme/Onc follow up of cytopenias
Subjective
Feels better. Denies current fever
Vital Signs:
Vital Signs
Temp Pulse Resp BP Pulse Ox
97.8 F 75 11 105/68 97
07/07/23 11:39 07/07/23 08:45 07/07/23 08:45 07/07/23 08:00 07/07/23 08:53
Lab Results:
Laboratory Data
WBC 3.4 10^3/uL (4.8-10.8) L 07/07/23 05:39
Hgb 13.9 g/dL (13.0-18.0) 07/07/23 05:39
Plt Count 130 10^3/uL (130-400) D 07/07/23 05:39
PT 13.3 Sec (11.4-14.6) 07/06/23 04:24
INR 1.02 07/06/23 04:24
APTT 34.7 Sec (23.4-35.0) 07/06/23 04:24
eGFR > 60.00 07/06/23 04:24
Physical Exam
HEENT: Moist Mucous Membranes; No Jaundice
Cardiology: Normal Sinus Rhythm, S1 and S2
Pulmonary: Clear; No Wheezes or Rales
GI: Soft and Normal Bowel Sounds
Extremities: No C/C/E
Neuro: Non Focal
Review of Systems
Review of Systems
Constitutional: Reports Fatigue; Denies Fever
Head: Denies Sore Throat or Hearing Loss
Respiratory: Denies Dyspnea or Cough
Cardiovascular: Denies Chest Pain or Palpitations
Gastrointestinal: Denies Nausea/Vomiting or Diarrhea
Genitourinary: Denies Hematuria
Skin: Denies Rash or Pruritis
Neurological: Denies Headache or Numbness
Psychiatric: Denies Depression or Insomnia
Hem/Lymphatic: Reports Easy Bruising
--- NOTE | 2023-07-07 14:12 | CM ---
Patient seen at bedside. Patient provided insurance number of [id number] [facility] PPO. CM will call to admissions and update. Patient for discharge tentatively today and states that he has no needs at this time. CM will continue to
follow for discharge planning needs.
Plan; home with no needs.
--- NOTE | 2023-07-07 15:21 | W.DCSUMMARY ---
Addendum entered and electronically signed by Jeremy Aguirre MD 07/07/23 21:54:
Attending Addendum:
Read reviewed and agree. See same day progress note for additional details.
Vu Aguirre MD
Original Note:
Documented by User: Zoraida Das MD, Resident 07/07/23 17:31
Discharge Summary
Discharge Data
Date of Admission: 07/03/23
Date of Discharge: 07/07/23
-
Pending Results: Yes (Dengue PCR, final blood cultures)
Hospital Course
DISCHARGE DIAGNOSIS
1. Bicytopenia secondary to possible Dengue
2. Acute Transaminitis
Consults: Infectious disease, hematology/oncology
BRIEF HOSPITAL COURSE: This is a 48-year-old male with no PMH who presented to the ED for fever, headache, body aches, fatigue and worsening abdominal pain. Patient reports he just returned from a trip to [facility] where he spent most of his time
in the [facility] [employer]. He was not vigilant about insect prevention and he got bit by mosquitos multiple times. [place] also [place] and drank [place]. On returning to the [facility], he started feeling unwell with subjective
fevers, chills, drenching sweats, headache, body aches, joint pain, fatigue. He took a COVID test and it was negative. He took Tylenol and he felt a little better. However he started developing lower abdominal pain and nausea. He had an episode
of nosebleeding, severe myalgia and pain behind his eyes. hence he decided to come to the ED for evaluation. On presentation to the ED, laboratory showed leukopenia 1.8, platelet count of 97, CMP showed significant elevations in AST, ALT and
lipase. Evaluation with CT scan of abdomen unremarkable.
Infectious disease was consulted, with blood parasite smear ordered which was negative, hepatitis A IgM negative, CMV serology negative, monoscreen negative, dengue PCR pending. Probable diagnosis includes dengue fever due to prevalence in the
geographic location. Physical examination showed presence of skin blanching rash on trunk. Patient was started on empiric ceftriaxone to cover possible typhoid. He was being monitored closely for critical phase of dengue with vascular leak
syndrome and shock. During the course of his hospital stay, there were no signs of bleeding and a normal fibrinogen level. Fluid replacement and antibiotics were continued for a total of 3 days with improvement of acute leukopenia episode and
resolved thrombocytopenia. Elevated LFTs began trending down, and his faint rash resolved. He will be discharged today with follow-up with PCP and infectious disease for repeat CBC, CMP. Send-out dengue serology still pending at the time of
discharge.
On the day of discharge, temperature 97.8, BP 103/61, pulse 63, O2 sat 98% on room air.
Physical examination; the patient is awake alert in no distress. S1-S2 present, regular rate regular rhythm. Abdomen is soft, nontender, nondistended with normal bowel sounds. Lungs are clear to auscultation. Extremities show no peripheral edema.
Discharge Plan
-
Patient Disposition: Home (Routine Discharge)
Discharge Diagnosis/Procedures: Bicytopenia possibly secondary to Dengue Fever
Acute Transaminitis
Condition: Fair
Diet: As tolerated
Activity: No strenuous activity
Additional Activity: Avoid contact sports
Avoid weight Lifting.
Blood Work: CBC in one week with PCP provider
CMP in one week with PCP provider
Activity Restrictions/Additional Instructions:
Information given to follow up with our clinic [facility] in one week.
Referrals:
NONE,* [Family Provider] -
Carmella Malave MD [Active] - in one week
Prescriptions:
Continued
ascorbic acid (vitamin C) [Vitamin C] 1,000 mg Tablet
1,000 mg PO DAILY PRN (Reason: supplement)
acetaminophen 500 mg Tablet
500 mg PO Q6H PRN (Reason: mild pain)
naproxen sodium [Aleve] 220 mg Tablet
220 mg PO Q8H PRN (Reason: mild pain)
calcium carbonate 500 mg calcium (1,250 mg) Tablet,Chewable
500 mg PO DAILY PRN (Reason: indigestion)
cholecalciferol (vitamin D3)
1 tab PO DAILYPRN PRN (Reason: supplement)
zinc
1 tab PO DAILYPRN PRN (Reason: supplement)
Discontinued
acetaminophen 500 mg Tablet
1,000 mg PO DAILYPRN PRN (Reason: severe pain)
ondansetron 4 mg tablet,disintegrating
4 mg PO Q8H PRN (Reason: nausea and vomiting) 5 Days Qty: 15 0RF
Discharge Orders:
Discharge Patient (As Directed); Ordered 07/07/23
Ordered By: Zoraida Das
Discharge Date and Time
Discharge Date/Time: 07/07/23 15:34
Print Language: BURUNDIAN

Documented by User: Jeremy Aguirre MD 07/07/23 21:49
Discharge Summary
Discharge Data
Date of Admission: 07/03/23
Date of Discharge: 07/07/23
Discharge Plan
-
Patient Disposition: Home (Routine Discharge)
Discharge Diagnosis/Procedures: Bicytopenia possibly secondary to Dengue Fever
Acute Transaminitis
Condition: Fair
Diet: As tolerated
Activity: No strenuous activity
Additional Activity: Avoid contact sports
Avoid weight Lifting.
Blood Work: CBC in one week with PCP provider
CMP in one week with PCP provider
Activity Restrictions/Additional Instructions:
Information given to follow up with our clinic [facility] in one week.
Referrals:
NONE,* [Family Provider] -
Carmella Malave MD [Active] - in one week
Prescriptions:
Continued
ascorbic acid (vitamin C) [Vitamin C] 1,000 mg Tablet
1,000 mg PO DAILY PRN (Reason: supplement)
acetaminophen 500 mg Tablet
500 mg PO Q6H PRN (Reason: mild pain)
naproxen sodium [Aleve] 220 mg Tablet
220 mg PO Q8H PRN (Reason: mild pain)
calcium carbonate 500 mg calcium (1,250 mg) Tablet,Chewable
500 mg PO DAILY PRN (Reason: indigestion)
cholecalciferol (vitamin D3)
1 tab PO DAILYPRN PRN (Reason: supplement)
zinc
1 tab PO DAILYPRN PRN (Reason: supplement)
Discontinued
acetaminophen 500 mg Tablet
1,000 mg PO DAILYPRN PRN (Reason: severe pain)
ondansetron 4 mg tablet,disintegrating
4 mg PO Q8H PRN (Reason: nausea and vomiting) 5 Days Qty: 15 0RF
Discharge Orders:
Discharge Patient (As Directed); Ordered 07/07/23
Ordered By: Zoraida Das
Discharge Date and Time
Discharge Date/Time: 07/07/23 15:34
Print Language: BURUNDIAN
--- NOTE | 2023-07-07 16:45 | PN.CDI ---
CDI
- -
CDI:
Physician Documentation Request
Admit Date: 07/03/23 23:11
Dear Doctor Timothy,
H&P states 'Presumed acute Bi-cytopenia ( low WCC, low Plt) nl Hgb '
Labs resulted as follows:
Laboratory Tests
07/03/23 07/04/23 07/05/23
21:12 04:46 06:04
WBC 1.8 L* 1.9 L* 2.2 L*
RBC 4.68 L 4.46 L 4.43 L
Plt Count 97 L 83 L 77 L
07/06/23 07/07/23
09:01 05:39
WBC 2.8 L 3.4 L
RBC 4.65 L 4.45 L
Plt Count 99 L D 130 D
Please clarify the type of 'penia' present on admission:
Bicytopenia
Pancytopenia
Other
Use of terms such as suspected, likely, concern for, or probable (associated with a specific diagnosis that is being evaluated, monitored, or treated as if it exists) are acceptable and can be coded in the inpatient setting, when documented at the
time of discharge.
Thank you,
Paty Vanessa RN, BSN
CDI Specialist
tiger text
Please use your independent medical judgment in providing your response.
== END 2023-07-07 15:34 | disposition home or self-care (01) | DRG 866 ==
LOC: IMU 23:11
PROVIDERS: Emergency Medicine; Hospitalist; Physician Assistant; Student in an Organized Health Care Education/Training Program; ADMITTING PHYSICIAN Internal Medicine; ATTENDING PHYSICIAN Family Medicine; CONSULT PHYSICIAN Internal Medicine Hematology & Oncology; CONSULT PHYSICIAN Internal Medicine Infectious Disease; EMERGENCY PHYSICIAN Emergency Medicine
DX: A90 Dengue fever [classical dengue] (principal); R18.8 Other ascites; Q61.02 Congenital multiple renal cysts; D69.6 Thrombocytopenia, unspecified; D72.819 Decreased white blood cell count, unspecified; W57.XXXA Bitten or stung by nonvenomous insect and other nonvenomous arthropods, initial encounter; R21 Rash and other nonspecific skin eruption; R50.9 Fever, unspecified; M79.10 Myalgia, unspecified site; M25.50 Pain in unspecified joint; R51.9 Headache, unspecified; R10.30 Lower abdominal pain, unspecified; R74.01 Elevation of levels of liver transaminase levels; D75.89 Other specified diseases of blood and blood-forming organs
CPT/HCPCS: 80053; 81003; 82248; 83690; 83735; 85025; 85384; 85610; 85730; 86308; 86644; 86645; 86705; 86706; 86709; 86803; 86850; 86900; 86901; 87015; 87040; 87207; 87340; 93005; 96360; 99285